=== PATIENT | male | born 1975 | race Caucasian/White ===

== ENCOUNTER 2021-05-16 08:14 | Outpatient (CLI) | payer MEDICARE, MEDICAID, SELFPAY ==
--- NOTE | 2021-05-16 08:25 | ECG_ITS ---
Measurements Intervals [place] Rate: 77 P: 40 HI: 164 QRS: 54 QRSD: 80 T: 57 QT: 347 QTc: 395 Interpretive Statements SINUS RHYTHM ST ELEVATION IN DIFFUSE LEADS- PROBABLY EARLY REPOLARIZATION ABNORMALITY BORDERLINE ECG Electronically Signed On 05-16-2021 8:56:52 CDT by Ascencion Iqbal D.O.
== END 2021-05-16 08:15 | disposition home or self-care (01) ==
PROVIDERS: PCP Family Medicine; Visit Provider Nurse Practitioner
DX: Z01.810 Encounter for preprocedural cardiovascular examination (principal); R94.31 Abnormal electrocardiogram [ECG] [EKG]
CPT/HCPCS: 93005

== ENCOUNTER 2021-11-22 19:43 | Emergency (ER) | payer MEDICARE, MEDICAID, SELFPAY ==
--- NOTE | ~2021-11-22 | CT_ITS ---
EXAMINATION: CT abdomen pelvis w con DATE: 11/22/2021 21:40 INDICATION: RLQ pain TECHNIQUE: Computed tomography (CT) of the abdomen and pelvis was performed with 100 mL Omnipaque-350 intravenous contrast. Automated exposure control and iterative reconstruction technique were employe d. The dose-length product was 1011.71 mGy-cm. COMPARISON: None FINDINGS: Lower thorax: Unremarkable. Liver: Normal. Biliary/Gallbladder: Gallbladder is normal. No bile duct dilation. Spleen: Normal. Pancreas: No mass or duct dilation. Adrenals:No mass. Kidneys: Punctate bilateral densities may represent tiny nonobstructive nephroliths. No mass or hydro nephrosis. GI tract: Prior gastric surgery. No small or large bowel dilation. Normal appendix. Mesentery/Peritoneum: No ascites, mass, or free air. Enlarged jing hepatic lymph nodes. Retroperitoneum: No mass. Pelvis: Pelvic organs are within normal limits. Bones/Soft Tissues: Soft tissues and body wall unremarkable. No acute osseous finding. Additional Findings: None. IMPRESSION: No CT abnormality detected in the right lower quadrant. Jing hepatic lymphadenopathy of uncertain et iology. Reviewed, dictated and finalized at location K. IMPRESSION: No CT abnormality detected in the right lower quadrant. Jing hepatic lymphaden opathy of uncertain etiology.
[2021-11-22 19:48] VITALS: BP 125/71; PULSE 69; RESP 18; TEMP 36.7; O2SAT 99
[2021-11-22 20:11] LABS: Basophils Percent Auto 0.4 % (0.2-1.2); Eosinophils Absolute Auto 0.1 K/mm3 (0-0.3); Eosinophils Percent Auto 1.2 % (0-4.4); Hematocrit 40.6 % (42.0-52.0); Hemoglobin 13.4 g/dL (14.0-18.0); Immature Granulocyte Absolute 0.01 K/mm3 (0.00-0.031); Immature Granulocyte Percent A 0.1 % (0-0.5); Lymphocytes Percent Auto 32.1 % (18.3-44.2); Mean Corpuscular Hemoglobin 31.6 pg (26-34); Mean Corpuscular Volume 95.8 fl (80-100); Mean Platelet Volume 9.9 fl (7.4-10.4); Monocytes Absolute Auto 0.7 K/mm3 (0.1-0.6); Monocytes Percent Auto 9.9 % (2.6-8.5); Neutrophils Absolute Auto 4.2 K/mm3 (1.3-6.7); Neutrophils Percent Auto 56.3 % (45.5-73.1); Platelet Count Result 202 k/mm3 (150-375); Red Blood Count 4.24 M/mm3 (4.6-6.20); Red Cell Distribution Width 13.5 % (11.5-14.5); White Blood Count 7.5 K/mm3 (4.5-10.0)
[2021-11-22 20:21] LABS: INR 1.2; Prothrombin Time 14.5 Seconds (11.1-14.7)
[2021-11-22 20:22] LABS: Partial Thromboplastin Time 29.9 SECONDS (22.3-36.8)
[2021-11-22 20:23] LABS: Alanine Aminotransferase 24 U/L (4-50); Albumin Level 4.3 g/dL (3.5-5.1); Alkaline Phosphatase 57 U/L (38-126); Anion Gap 8 mmol/L (8-16); Aspartate Amino Transferase 34 U/L (17-59); Bilirubin,Total 0.4 mg/dL (0.2-1.3); Blood Urea Nitrogen 23 mg/dL (9-20); Carbon Dioxide 30 mmol/L (22-30); Chloride 103 mmol/L (98-107); Estimated CRCL calculation 88 ml/min; Estimated Glomerular Filt Rate > 60; Glucose 85 mg/dL (65-110); Potassium 3.9 mmol/L (3.4-5.0); Sodium 141 mmol/L (137-145)
--- NOTE | 2021-11-22 21:06 | ED.GIBLEED ---
HPI - GI Bleed General Chief complaint: GI Bleed <Hamilton Kaur MD - Last Filed: 11/22/21 21:26> Stated complaint: RECTAL BLEEDING <Hamilton Kaur MD - Last Filed: 11/22/21 21:26> Time Seen by Provider: 11/22/21 20:05 <Hamilton Kaur MD - Last Filed: 11/22/21 21:26> History of Present Illness HPI Narrative: Patient is a 46-year-old male who presents ER with rectal bleeding. Patient had a bowel movement yesterday and noticed 6 pea-sized red blood clots and a little bit of streak on the paper. He had additional bowel movements yesterday and today without additional issue. He has noted that he has had some increased abdominal cramping over the last couple days. This evening he noticed blood again on the toilet paper when wiping and when he looked in the toilet he saw stringy red blood moving from the top of the toilet down towards the bottom. No diarrhea. His stools been formed. No constipation or straining. Patient is not a blood thinners. He does have pain in his right lower quadrant without radiation. No history of appendicitis or diverticulitis. Patient does have history of gastric bypass surgery. He has had no acid reflux. No epigastric discomfort or vomiting. <Hamilton Kaur MD - Last Filed: 11/22/21 21:26> Related Data Home medications: Home Medications Medication Instructions Recorded Confirmed enoxaparin 40 mg/0.4 mL 40 mg SUBCUT DAILY ml 07/16/21 07/16/21 subcutaneous syringe omeprazole 20 mg capsule,delayed 20 mg PO DAILY cap 07/16/21 07/16/21 release <Hamilton Kaur MD - Last Filed: 11/22/21 21:26> Allergies/Adverse reactions: Allergies Allergy/AdvReac Type Severity Reaction Status Date / Time No Known Allergies Allergy Verified 07/16/21 09:43 <Hamilton Kaur MD - Last Filed: 11/22/21 21:26> Review of Systems Review of Systems: All systems reviewed & are unremarkable except as noted in HPI and below <Hamilton Kaur MD - Last Filed: 11/22/21 21:26> Constitutional: Constitutional: Denies chills, Denies fever(s) and Denies weakness <Hamilton Kaur MD - Last Filed: 11/22/21 21:26> Cardiovascular: Cardiovascular: Denies chest pain, Denies rapid heart rate and Denies radiating jaw, neck or arm pain <Hamilton Kaur MD - Last Filed: 11/22/21 21:26> Respiratory: Respiratory: Denies chest congestion, Denies cough, Denies dyspnea and Denies wheezing <Hamilton Kaur MD - Last Filed: 11/22/21 21:26> Gastrointestinal: Gastrointestinal: Reports abdominal pain, Denies constipation, Denies diarrhea, Denies nausea and Denies vomiting <Hamilton Kaur MD - Last Filed: 11/22/21 21:26> Comments: Positive blood in stool <Hamilton Kaur MD - Last Filed: 11/22/21 21:26> PMFSH Past Medical History Medical History: Medical History (Updated 11/22/21 @ 22:19 by Misael Piper MD) Chiari malformation type I Chronic neck pain Combined hyperlipidemia Diabetes mellitus <Hamilton Kaur MD - Last Filed: 11/22/21 21:26> Surgical History Surgical History: Surgical History (Updated 07/16/21 @ 12:15 by Stephanie Bolanos NP) S/P gastric sleeve procedure (~06/2021) <Hamilton Kaur MD - Last Filed: 11/22/21 21:26> Family History Family History: Family History Father Diabetes mellitus Sibling Diabetes mellitus <Hamilton Kaur MD - Last Filed: 11/22/21 21:26> Social History Social History: Social History Smoking status: Former smoker Tobacco type: cigarettes Smoking end date: 09/05/19 <Hamilton Kaur MD - Last Filed: 11/22/21 21:26> Exam Narrative: GENERAL: Well-appearing, well-nourished, and in no acute distress. HEAD: Normocephalic, atraumatic. ENT: Mucous membranes moist. CHEST: Clear to auscultation. No respiratory distress. HEART: Regular rate and rhythm. Nor
== END 2021-11-22 23:05 | disposition home or self-care (01) ==
PROVIDERS: Emergency Provider Emergency Medicine; PCP Family Medicine
DX: K62.5 Hemorrhage of anus and rectum (principal); G93.5 Compression of brain; E78.2 Mixed hyperlipidemia; E11.9 Type 2 diabetes mellitus without complications; Z98.84 Bariatric surgery status; Z87.891 Personal history of nicotine dependence
CPT/HCPCS: 36415; 74177; 80053; 85025; 85610; 85730; 86850; 86900; 86901; 99284; Q9967

== ENCOUNTER 2023-07-07 09:51 | Emergency (ER) | payer MEDICARE, MEDICAID, SELFPAY ==
[2023-07-07] VITALS (26 sets, daily range): BP systolic 98–155; BP diastolic 57–102; PULSE 46–83; RESP 12–18; TEMP 36.9; O2SAT 98–100
--- NOTE | ~2023-07-07 | CT_ITS ---
EXAMINATION: CTA BRAIN/CAROTID DATE: 07/07/2023 11:57 INDICATION: Syncope. Difficulty moving extremities. Altered mental status. TECHNIQUE: Computed tomographic angiography (CTA) of the head and neck was performed with 100 mL Omni paque-350 intravenous contrast. Multiplanar reconstructions and maximum intensity projection 3D-recon structions of the carotid arteries and of the intracranial arteries were created by the technologist on a separate workstation. Precontrast CT of the head was also obtained. Automated exposure control and iterative reconstruction technique were employed.The dose-length product was 1983.84 mGy-cm. COMPARISON: None. FINDINGS: Carotid arteries: Aortic arch is normal in caliber with no dissection or evident atherosclerotic plaque. There is no ev ident atherosclerotic plaque with 0% stenosis of the left carotid bulbs relative to normal distal art italo lumen diameter (NASCET criteria). Bilateral vertebral arteries are codominant with no evident ath erosclerotic plaque or stenosis. Mild dependent atelectasis in the visualized right lower lobe. Remai nder of the visualized mid and upper lungs are clear. Visualized superior mediastinum and cervical so ft tissues are unremarkable. Mild cervical spondylosis with bridging osteophytes at multiple levels c onsistent with diffuse idiopathic skeletal hyperostosis (DISH). Head: No acute intracranial hemorrhage, acute infarction or abnormal extra axial fluid collection. Ventricl es are normal and symmetric. No mass/mass effect. Change of a posterior occipital decompression crani ectomy. The orbits, paranasal sinuses and mastoid air cells are normal. No abnormally enhancing brain lesions. Intracranial arteries There is no hemodynamically significant stenosis in the vertebral, basilar and internal carotid arter ies. Vertebral arteries are codominant. There are no aneurysms identified. Bilateral A1 segments are patent. There is a patent anterior to indicating artery. Bilateral P1 segments are patent with diminu tive right P1 segment. There are also patent bilateral posterior commuting arteries. Cerebral arteria l arborization appears symmetric. IMPRESSION: 1. No evident atherosclerotic plaque with 0% stenosis of the right and left carotid bulbs relative to normal distal artery lumen diameter (NASCET criteria). 2. No acute intracranial process. 3. Normal cerebral CT angiogram. 4. Postoperative change of prior occipital posterior decompression craniectomy. Reviewed, dictated and finalized at location A. ACQUISITION MANAGER IMPRESSION: 1. No evident atherosclerotic plaque with 0% stenosis of the right and left car otid bulbs relative to normal distal artery lumen diameter (NASCET criteria). 2. No acute intracranial process. 3. Normal cerebral CT angiogram. 4. Postoperative change of prior occipital posterior decompression craniectomy.
--- NOTE | 2023-07-07 09:58 | ECG_ITS ---
Measurements Intervals [place] Rate: 53 P: 15 WV: 139 QRS: 17 QRSD: 85 T: 27 QT: 403 QTc: 378 Interpretive Statements SINUS BRADYCARDIA LOW QRS VOLTAGE IN PRECORDIAL LEADS [QRS DEFLECTION < 1.0 mV IN CHEST LEADS] COMPARED TO ECG 05/16/2021 08:32:45 THE HEART RATE IS SLOWER Electronically Signed On 07-07-2023 12:09:16 RN UTILIZATION MANAGEMENT UM by Gloria Donaldson M.D.
[2023-07-07 10:15] LABS: Basophils Percent Auto 0.7 % (0.2-1.2); Eosinophils Absolute Auto 0.1 K/mm3 (0-0.3); Eosinophils Percent Auto 1.5 % (0-4.4); Hematocrit 42.2 % (42.0-52.0); Lymphocytes Absolute Auto 1.74 K/mm3 (0.9-3.2); Lymphocytes Percent Auto 42.3 % (18.3-44.2); Mean Corpuscular HGB Conc 33.2 g/dl (32-36); Mean Corpuscular Volume 90.6 fl (80-100); Mean Platelet Volume 9.2 fl (7.4-10.4); Monocytes Absolute Auto 0.5 K/mm3 (0.1-0.6); Monocytes Percent Auto 12.9 % (2.6-8.5); Neutrophils Absolute Auto 1.8 K/mm3 (1.3-6.7); Neutrophils Percent Auto 42.6 % (45.5-73.1); Platelet Count Result 194 k/mm3 (150-375); Red Blood Count 4.66 M/mm3 (4.6-6.20); Red Cell Distribution Width 13.2 % (11.5-14.5); White Blood Count 4.1 K/mm3 (4.5-10.0)
[2023-07-07 10:26] LABS: Alanine Aminotransferase 19 U/L (6-50); Albumin Level 4.6 g/dL (3.5-5.1); Alkaline Phosphatase 56 U/L (38-126); Anion Gap 10 mmol/L (8-16); Aspartate Amino Transferase 30 U/L (17-59); Bilirubin,Total 0.8 mg/dL (0.2-1.3); Blood Urea Nitrogen 14 mg/dL (9-20); Calcium 9.4 mg/dL (8.4-10.2); Carbon Dioxide 26 mmol/L (22-30); Chloride 104 mmol/L (98-107); Estimated CRCL calculation 152 ml/min; Estimated Glomerular Filt Rate > 60; Glucose 83 mg/dL (65-110); Potassium 4.3 mmol/L (3.4-5.0); Sodium 140 mmol/L (137-145)
--- NOTE | 2023-07-07 11:30 | PC.NURSE ---
per she and pt were shopping at [facility] when pt stated he didnt feel right and started moving backwards. states she helped him to the floor. pt then started c/o chest pain and left arm pain to left bicep. pt continues to have arm pain at present. was at that time without any neuro deficit.
--- NOTE | 2023-07-07 11:37 | ED.SYNCOPE ---
HPI - Syncope General Chief Complaint: Syncope <TATIANNA Chapin Last Filed: 07/07/23 19:57> Stated Complaint: syncope <TATIANNA Chapin Last Filed: 07/07/23 19:57> Time Seen by Provider: 07/07/23 10:50 <TATIANNA Chapin Last Filed: 07/07/23 19:57> Source: patient and family <TATIANNA Chapin Last Filed: 07/07/23 19:57> Mode of arrival: EMS <TATIANNA Chapin Last Filed: 07/07/23 19:57> Limitations: altered mental status and clinical condition <TATIANNA Chapin Last Filed: 07/07/23 19:57> History of Present Illness HPI narrative: Patient is a 48 y/o male who presents to the ED via EMS with report of syncopal episode. at bedside assisted in providing information. She reports patient was in his normal state of health this morning. They were at [employer] today and patient reported having vision changes, described as though his vision was intermittently going black. Patient then fell to the ground. was able to catch him before he fell. He did not hit his head. called for EMS at 0920 am. is unsure patient fully lost consciousness or not. She states he was able to talk to him while lying on the ground. EMS noted patient's blood sugar to be slightly low at 72. They administered D10 en route to the ED. Patient does not have history of diabetes. In triage, patient was alert and oriented x4, able to describe events. Upon my evaluation, patient confused, A&O X1-2, w/ difficulty moving extremities/opening right eye. He admits to having a headache over the last 3 days. He c/o GRIJALVA currently and pain to L upper arm. reports hx of migraines r/t previous Chiari malformation. She states his migraines have never presented like this. <TATIANNA Chapin Last Filed: 07/07/23 19:57> Related Data Home Medications: Home Medications Medication Instructions Recorded Confirmed buprenorphine 15 mcg/hour weekly transdermal 10/25/23 10/25/23 transdermal patch pregabalin 100 mg capsule mg PO 05/26/23 05/26/23 <Gloria Block PA-C - Last Filed: 07/07/23 19:57> Allergies/Adverse Reactions: Allergies Allergy/AdvReac Type Severity Reaction Status Date / Time No Known Allergies Allergy Verified 05/26/23 09:03 <Gloria Block PA-C - Last Filed: 07/07/23 19:57> Review of Systems Review of Systems: CONSTITUTIONAL: Denies fever, chills, or sweats. EYES: See HPI. CARDIOVASCULAR: Denies chest pain, palpitations, or edema. RESPIRATORY: Denies cough or dyspnea. GASTROINTESTINAL: Denies abdominal pain, nausea, vomiting. MUSCULOSKELETAL: See HPI. NEUROLOGIC: See HPI. <Gloria Block PA-C - Last Filed: 07/07/23 19:57> All systems reviewed & are unremarkable except as noted in HPI and below <Gloria Block PA-C - Last Filed: 07/07/23 19:57> [facility] Past Medical History Medical History: Medical History Chiari malformation type I Chronic neck pain Combined hyperlipidemia Diabetes mellitus <Gloria Block PA-C - Last Filed: 07/07/23 19:57> Surgical History Surgical History: Surgical History S/P gastric sleeve procedure (~06/2021) <Gloria Block PA-C - Last Filed: 07/07/23 19:57> Family History Family History: Family History Mother Diabetes mellitus, Onset Age: 62 Acute myocardial infarction, Onset Age: 62 Cerebrovascular accident, Onset Age: 62 Cancer Father Patient's father is Acute myocardial infarction Diabetes mellitus Grandparent Family history of Alzheimer's disease, Onset Age: 84 Family history of lung cancer Father Diabetes mellitus Sibling Diabetes mellitus <Gloria Michelle
[2023-07-07 11:45] LABS: Glucose Point of Care 72 mg/dl (65-105)
--- NOTE | 2023-07-07 12:00 | PC.NURSE ---
pt return from ct. buprenorphine 15mcg/hr patch removed from pts back. instensity of muscle twitching increased in right arm and has moved up into his shoulder. left eye remains slightly open and pt remains unable to open right eye.
[2023-07-07 12:39] LABS: Ethanol < 10 mg/dL (<10)
[2023-07-07] MEDS: SODIUM CHLORIDE 0.9% IV 1,000 ML 999 ML IV CONT (12:45)
[2023-07-07] MEDS: METOCLOPRAMIDE HCL INJ 10 MG/2 ML VIAL IV PUSH (12:46)
[2023-07-07] MEDS: KETOROLAC 30 MG/ML VIAL (*BKC) IV PUSH (12:46)
[2023-07-07 12:49] LABS: Troponin I < 0.012 ng/mL (0.000-0.034)
[2023-07-07] MEDS: diphenhydrAMINE HCl INJ 50 MG/ML VIAL 25 MG IV PUSH (12:50)
[2023-07-07] MEDS: levETIRAcetam 500MG/NACL 100ML 500 MG/100 ML BAG 400 MG IVPB (12:56)
[2023-07-07] MEDS: ACETAMINOPHEN 500 MG TABLET 1000 MG PO (12:57)
--- NOTE | 2023-07-07 13:00 | PC.NURSE ---
pt responds more quickly. still does not recognize or remember todays events. c/o frontal headache that is severe. pt moving legs with increased ease. weakness still noted. muscle spasms stopped in right arm. remains unable to open his right eye.
--- NOTE | 2023-07-07 13:56 | PM.IMHP ---
H&P: HPI History of Present Illness Date/Time: 07/07/23 13:56 Chief Complaint: AMS, Syncope Narrative: 48 y/o M presented here with visual disturbances and syncopal episode with PMH of HLD, and chiari malformation type 1 s/p craniotomy. HPI obtained through 's report and chart review. Per , she in the patient or shopping at the grocery store today when he reported vision changes. Described them as darkening and intermittent. Patient then collapsed, was able to prevent patient from hitting his head,+/- LOC, and EMS was called. At EMS arrival patient's blood sugar was mildly low, 72, given D10, and did not report hx of DM. At arrival to the emergency department patient was A&O x4 without complaints of neuro deficits. However during ED provider assessment, patient was A/Ox1-2. He was unable to identify and endorsed difficulty moving R side. Then reported severe GRIJALVA for the past 3 days. Previous migraines were associated with the Chiari malformation. Patient was given prophylactic Keppra and medications to treat acute migraine. Headache resolved and patient reported weakness/confusion also resolved. Review of Systems Review of Systems: All systems reviewed & are unremarkable except as noted in HPI and below PMFSH Past Medical History Medical History Chiari malformation type I Chronic neck pain Combined hyperlipidemia Diabetes mellitus Surgical History Surgical History S/P gastric sleeve procedure (~06/2021) Family History Family History Mother Diabetes mellitus, Onset Age: 62 Acute myocardial infarction, Onset Age: 62 Cerebrovascular accident, Onset Age: 62 Cancer Father Patient's father is Acute myocardial infarction Diabetes mellitus Grandparent Family history of Alzheimer's disease, Onset Age: 84 Family history of lung cancer Father Diabetes mellitus Sibling Diabetes mellitus Social History Social History Social History: Arturo is somewhat confident filling out medical forms. In the last 12 months he has not received any assistance from an organization or program. The date of his last physical exam was a few months ago. Denies any urinary complaints. Awakens once nightly to urinate. Denies having difficulty getting or maintaining an erection. Has not had a PSA blood test. Has not have Flu vaccine, tetanus vaccine, or pneumonia vaccine. Has had adults over 20 cholesterol test 01/18/23. Has never had a blood transfusion. Denies currently using recreational or street drugs. Denies ever giving self street drugs with a needle. Reports eating a healthy diet and exercising regularly. Caffeine intake consists of 2 cups of cola/soda and coffee per day. Smoking status: Former smoker Tobacco type: cigarettes Second hand tobacco smoke exposure: No Smoking end date: 01/30/14 Alcohol intake: former Substance use: never Substance use type: does not use Lack of Transportation: No Lack of Food: Never True Current Housing: I Have Housing Concerned About Future Housing: No Difficulty Paying Gas/Electric Bills: No Difficulty Paying for Meds: No Currently Unemployed: No Education: Grade School Difficulty w/ Childcare or Family Care: No Living arrangements: with friend(s) Occupation/Education: other Additional occupation/education comments: Disabled Gender identity (if verbalized by the patient): Male Sexual Orientation (if Verbalized by the Patient): Straight or Heterosexual Meds Home Medications and Allergies Home Medications Medication Instructions Recorded Confirmed Type buprenorphine 15 mcg/hour weekly transdermal 05/26/23 05/26/23 History transdermal patch prega
[2023-07-07 14:31] LABS: Appearance Urine Clear (Clear); Bilirubin Urine Negative (Negative); Blood Urine Negative (Negative); Color Urine Yellow (Yellow); Glucose Urine UA Negative (Negative); Ketones Urine Negative (Negative); Leukocyte Esterase Ur Negative LEU/UL (Negative); Nitrate Urine Negative (Negative); Protein Urine Negative (Negative); Specific Grav Ur 1.021 (1.001-1.035); pH Urine 6.5 (5.0-9.0)
[2023-07-07 14:39] LABS: Add Urine Microscopic? NO
[2023-07-07 14:55] LABS: Amphetamine Screen Urine Negative (Negative); Barbiturate Screen Urine Negative (Negative); Benzodiazepines Screen Urine Negative (Negative); Cannabinoid Screen Urine Negative (Negative); Cocaine Screen Urine Negative (Negative); Methadone Screen Urine Negative (Negative); Opiate Screen Urine Positive (Negative); Phencyclidine Screen Urine Negative (Negative)
--- NOTE | 2023-07-07 15:15 | PC.NURSE ---
pt requesting to sign ama. states he does not want to be admitted. c/o frontal [place] 10/09. remembers todays events. no neuro deficit noted on exam. jeff pham, hospitalist niya and dr najera aware. dr najera spoke with pt regarding risks involved. pt states he agrees to having mri done at [facility] as open mri but states he cannot have one here due to our machine being closed. agrees to monitor pt tonight and contact ems if any symptoms return. ama form signed by pt.
== END 2023-07-07 15:15 | disposition left against medical advice (07) ==
PROVIDERS: Emergency Medicine; Emergency Provider Physician Assistant; PCP Emergency Medicine
DX: R55 Syncope and collapse (principal); R51.9 Headache, unspecified; R41.82 Altered mental status, unspecified; R53.1 Weakness; G93.5 Compression of brain; E78.2 Mixed hyperlipidemia; E11.9 Type 2 diabetes mellitus without complications; Z98.84 Bariatric surgery status; Z87.891 Personal history of nicotine dependence; R00.1 Bradycardia, unspecified; Z79.899 Other long term (current) drug therapy
CPT/HCPCS: 36415; 70496; 70498; 80053; 80307; 81003; 82948; 84484; 85025; 93005; 96365; 96375; 99284; A9270; J1200; J1885; J1953; J2765; J7030; Q9967